=== PATIENT | female | born 1995 | race Caucasian/White ===

== ENCOUNTER 2017-12-14 12:28 | Emergency (ER) | payer MEDICAID ==
[~2017-12-14] VITALS: Ht 157.5 cm; Wt 50.3 kg
[2017-12-14 12:33] VITALS: BP_SYST 93
[2017-12-14 13:08] VITALS: BP_SYST 112
== END 2017-12-14 13:05 | disposition home or self-care (01) ==
LOC: SED 12:28
DX: F11.20 Opioid dependence, uncomplicated (principal); I10 Essential (primary) hypertension; Z88.0 Allergy status to penicillin
CPT/HCPCS: 81025; 99283